=== PATIENT | male | born 1995 | race Caucasian/White ===

== ENCOUNTER 2017-01-02 16:25 | Emergency (ER) | payer OTHER ==
[~2017-01-02] VITALS: Ht 167.6 cm; Wt 104.5 kg
[2017-01-02 16:28] VITALS: BP 136/98; TEMP 98.4
[2017-01-02 18:55] VITALS: PULSE 78
== END 2017-01-02 18:56 | disposition home or self-care (01) ==
LOC: COL.ER 16:25
DX: S63.501A Unspecified sprain of right wrist, initial encounter (principal); S80.12XA Contusion of left lower leg, initial encounter; V87.8XXA Person injured in other specified noncollision transport accidents involving motor vehicle (traffic), initial encounter